=== PATIENT | female | born 1965 | race African-American/Black ===

== ENCOUNTER 2017-05-12 16:34 | Emergency (ER) | payer OTHER ==
[2017-05-12] MEDS ORDERED: morphine 4 MG/ML VIAL IV (22:32)
[2017-05-13] MEDS: ONDANSETRON 4 MG INJ IV (00:41)
[2017-05-13] MEDS: SOD CHLORIDE 0.9% 1,000 ML IV (00:42)
[2017-05-13] MEDS: DIAZEPAM 5 MG/ML SYG IV (00:42)
[2017-05-13] MEDS: KETOROLAC 30 MG INJ IV (00:42)
[2017-05-13 03:01] LABS: ERYTHROCYTE SEDIMENTATION RATE 8 mm/Hr (0-30)
[2017-05-13 06:25] LABS: ADD MAN DIFF? NO
[2017-05-13 06:58] LABS: ADD MAN DIFF? NO
[2017-05-13 07:01] LABS: WHITE BLOOD COUNT 5.7 10^3/ul (4.8-10.8)
[2017-05-13 07:01] LABS: BASOPHILS % 0.5 % (0.0-2.0); EOSINOPHILS % 0.5 % (0.0-7.0); HEMATOCRIT 39.3 % (37.0-47.0); HEMOGLOBIN 12.7 g/dl (12.0-16.0); LYMPHOCYTES % 35.1 % (15.0-51.0); MEAN CORPUSCULAR HEMOGLOBIN 31.8 pg (29.0-33.0); MEAN CORPUSCULAR HGB CONC 32.3 g/dl (32.0-37.0); MEAN CORPUSCULAR VOLUME 98.3 fl (82.0-101.0); MONOCYTE # 0.3 10^3/ul (0.3-0.9); MONOCYTES % 4.9 % (0.0-11.0); NEUTROPHIL # 3.4 10^3/ul (1.6-7.5); NEUTROPHILS % 58.8 % (39.0-77.0); PLATELET COUNT 204 10^3/UL (140-415); RED CELL DISTRIBUTION WIDTH 13.9 % (11.5-14.5)
[2017-05-13 07:08] LABS: PARTIAL THROMBOPLASTIN TIME 27.3 Sec (25.0-35.0); PROTIME 12.2 Sec (11.9-14.9)
[2017-05-13 07:09] LABS: POTASSIUM 4.3 mmol/L (3.5-5.1); SODIUM 145 mmol/L (135-144)
[2017-05-13 07:10] LABS: ANION GAP 13 (8-16); BLOOD UREA NITROGEN 17 mg/dl (7-20); CALCIUM 9.2 mg/dl (8.4-10.2); CARBON DIOXIDE 28 mmol/L (21-31); CHLORIDE 108 mmol/L (97-110); CREATININE 0.83 mg/dl (0.44-1.00); GLUCOSE 93 mg/dl (70-220); TROPONIN-I < 0.012 ng/ml (0.00-0.12)
== END 2017-05-13 02:44 | disposition home or self-care (01) ==
LOC: E/R 05-13 02:44
DX: M62.838 Other muscle spasm (principal)
CPT/HCPCS: 36415; 70450; 72125; 80048; 84484; 85025; 85610; 85651; 85730; 96374; 96375; 99285-25